=== PATIENT | female | born 1980 | race Caucasian/White ===

== ENCOUNTER 2018-09-28 08:19 | Emergency (ER) | payer BC ==
[2018-09-28 08:25] VITALS: BP 131/77; PULSE 113; RESP 18; TEMP 97.8
[2018-09-28] MEDS ORDERED: PENICILLIN VK 500MG STARTER 4 TAB BTL PO STA (08:35)
--- NOTE | 2018-09-28 08:36 | ED ---
ENT HPI - General Chief complaint: Dental/Oral Stated complaint: Abscess Time Seen by Provider: 09/28/18 08:25 Source: patient, RN notes reviewed Mode of arrival: ambulatory Limitations: no limitations - History of Present Illness Initial comments: 37-year-old female presents emergency Department chief complaint dental abscess. Patient states that she had a bump on the side of her gum towards the roof of her mouth over the last 1 week. States it increased in size states that she woke up this morning with a pimple-like structure that ruptured. Patient states that it drained out a large amount of pus. Patient states that she's had no fever or chills. She has no current severe pain. She states she's been taken Tylenol which does help the pain. Patient denies any headache, dizziness, neck pain, neck stiffness. Patient had no night sweats. Patient states she has had recent dental work in which she's had some prior abscesses. - Related Data Home Medications Medication Instructions Recorded Confirmed Levothyroxine Sodium [Synthroid] 08/13/15 08/13/15 Pnv,Calcium 72/Iron/Folic Acid 08/13/15 08/13/15 [Pnv Plus Multivit Tab] Previous Rx's Medication Instructions Recorded Acetaminophen-Codeine 300-30mg 1 each PO Q4HR PRN #30 tab 08/15/15 [Tylenol w/codeine #3] Ibuprofen [Motrin] 600 mg PO Q6HR PRN #0 tab 08/15/15 Sennosides-Docusate Sodium 2 each PO BID@0800,2000 #0 tab 08/15/15 [Senokot-S] Penicillin V Potassium [Pen Vee K] 500 mg PO QID #40 tablet 09/28/18 Allergies Allergy/AdvReac Type Severity Reaction Status Date / Time brompheniramine maleate Allergy Unknown Verified 09/28/18 08:25 [From Dimetapp Childhood (brompheniramine-PPA)] erythromycin lactobionate Allergy Unknown Verified 09/28/18 08:25 [From Erythrocin] Childhood peanut Allergy Anaphylaxis Verified 09/28/18 08:25 phenylpropanolamine HCl Allergy Unknown Verified 09/28/18 08:25 [From [employer]et[employer] Childhood (brompheniramine-PPA)] wheat AdvReac Diarrhea Verified 09/28/18 08:25 Review of Systems ROS Statement: Those systems with pertinent positive or pertinent negative responses have been documented in the HPI. ROS Other: All systems not noted in ROS Statement are negative. Past Medical History Past Medical History: Thyroid Disorder Additional Past Medical History / Comment(s): hypothyroidism History of Any Multi-Drug Resistant Organisms: None Reported Past Surgical History: Tonsillectomy Additional Past Surgical History / Comment(s): left ankle surgery Past Anesthesia/Blood Transfusion Reactions: No Reported Reaction Past Psychological History: No Psychological Hx Reported Smoking Status: Never smoker Past Alcohol Use History: None Reported Past Drug Use History: None Reported - Past Family History Father Family Medical History: Hypertension General Exam Limitations: no limitations General appearance: alert, in no apparent distress Head exam: Present: atraumatic, normocephalic, normal inspection Eye exam: Present: normal appearance, PERRL, EOMI. Absent: scleral icterus, conjunctival injection, periorbital swelling ENT exam: Present: mucous membranes moist. Absent: normal oropharynx (Right upper gumline there is approximately 1 cm open draining abscess, mild erythema) Neck exam: Present: normal inspection, full ROM. Absent: tenderness, meningismus, lymphadenopathy Respiratory exam: Present: normal lung sounds bilaterally. Absent: respiratory distress, wheezes, rales, rhonchi, stridor Cardiovascular Exam: Present: regular rate (Patient was tachycardic in triage, heart rate and room 80), normal rhythm, normal heart sounds. Absent: systolic murmur, diastolic murmur, rubs, gallop, clicks Neurological exam: Present: alert Skin exam: Present: warm, dry, intact, normal color. Absent: rash Course Vital Signs 09/28/18 08:22 Temperature 97.8 F Pulse Rate 113 H Respiratory 18 Rate Blood Pressure 131/77 O2 Sat by Pulse 99 Oximetry Medical Decision Making - Medical Decision Making 37-year-old female presented emergency from for dental abscess. Patient has an open draining abscess on the right side. Patient is afebrile, in no distress. Patient we placed on Pen-Vee K 4 times a day with follow-up with her dentist. Patient states she does have an appointment this week. Disposition Clinical Impression: Dental abscess Disposition: HOME SELF-CARE Condition: Stable Instructions (If sedation given, give patient instructions): Dental Abscess (ED) Additional Instructions: Please return to the Emergency Department if symptoms worsen or any other concerns. Prescriptions: Penicillin V Potassium [Pen Vee K] 500 mg PO QID #40 tablet Is patient prescribed a controlled substance at d/c from ED?: No Referrals: Kiana Guajardo MD [Primary Care Provider] - 1-2 days Time of Disposition: 08:36
== END 2018-09-28 08:47 | disposition home or self-care (01) ==
LOC: MERGE 08:19 → EC 08:19
DX: K04.7 Periapical abscess without sinus (principal); E03.9 Hypothyroidism, unspecified; Z79.890 Hormone replacement therapy; Z88.8 Allergy status to other drugs, medicaments and biological substances; Z88.1 Allergy status to other antibiotic agents; Z91.010 Allergy to peanuts; Z91.018 Allergy to other foods
CPT/HCPCS: 99283

== ENCOUNTER → 2019-03-31 | Outpatient (CLI) | payer BC ==
[2019-03-31 23:45] LABS: T4, Free (Free Thyroxine) 1.2 ng/dL (0.80-1.80)
[2019-03-31 23:48] LABS: African American GFR (CKD) 106.9 (60.0-200.0); Albumin 4.1 g/dL (3.80-4.90); Albumin/Globulin Ratio 2.28 (1.60-3.17); Anion Gap 9.4 mmol/L (4.00-12.00); BUN/Creat Ratio 16.25 Ratio (12.00-20.00); Calcium 8.9 mg/dL (8.7-10.3); Carbon Dioxide 25.6 mmol/L (21.6-31.8); Globulin 1.8 g/dL (1.6-3.3); Potassium 3.7 mmol/L (3.5-5.5); Total Bilirubin 0.4 mg/dL (0.3-1.2); Total Protein 5.9 g/dL (6.2-8.2)
== END | disposition home or self-care (01) ==
LOC: LABWHC1 17:08
DX: E03.9 Hypothyroidism, unspecified (principal); I10 Essential (primary) hypertension
CPT/HCPCS: 36415; 80053; 82306; 84439; 84443; 84481